=== PATIENT | male | born 1935 | race Caucasian/White ===

== ENCOUNTER 2017-12-15 19:13 | Inpatient (IN) | payer MEDICARE, BC ==
[~2017-12-15] VITALS: Ht 190.5 cm; Wt 99.2 kg
[2017-12-15] MEDS ORDERED: SODIUM CHLORIDE FLUSH 10ML SYR IVF ONE (20:00)
[2017-12-15] MEDS ORDERED: SODIUM CHLORIDE 0.9% 1,000ML IVBOLUS ONE (20:00)
[2017-12-15 20:49] LABS: BASOPHILS # (AUTO) 0.01 x10^3/uL (0-0.1); BASOPHILS % (AUTO) 0 % (0-1); EOSINOPHILS # (AUTO) 0.05 x10^3/uL (0-0.4); EOSINOPHILS % (AUTO) 1 % (1-7); LYMPHOCYTES # (AUTO) 1.44 x10^3/uL (1-3.4); LYMPHOCYTES % (AUTO) 15 % (22-44); MD NO; MEAN CORPUSCULAR HEMOGLOBIN 31.4 pg (27.5-34.5); MEAN CORPUSCULAR HGB CONC 33.8 g/dL (33.2-36.2); MEAN PLATELET VOLUME 7.6 fL (7.4-10.4); MONOCYTES # (AUTO) 0.81 x10^3/uL (0.2-0.8); MONOCYTES % (AUTO) 9 % (2-9); NEUTROPHILS # (AUTO) 7.12 x10^3/uL (1.8-6.8); NEUTROPHILS % (AUTO) 76 % (42-75); PLATELET COUNT 251 x10^3/uL (130-400); RED BLOOD COUNT 4.93 x10^6/uL (4.38-5.82); RED CELL DISTRIBUTION WIDTH 13.9 % (9.4-14.8)
[2017-12-15 21:01] LABS: ALANINE AMINOTRANSFERASE 26 U/L (12-78); ALBUMIN 3.6 g/dL (3.4-5.0); ANION GAP 12 mmol/L (5-15); CALCIUM 9.5 mg/dL (8.5-10.1); CHLORIDE 106 mmol/L (98-107)
[2017-12-15] MEDS ORDERED: omeprazole (21:02)
[2017-12-15] MEDS ORDERED: METF500T17 PO (21:02)
[2017-12-15 21:04] LABS: ALKALINE PHOSPHATASE 72 U/L (45-117); BILIRUBIN,TOTAL 1.4 mg/dL (0.2-1.0); TOTAL PROTEIN 8.5 g/dL (6.4-8.2)
[2017-12-15 21:06] LABS: CREATINE KINASE, TOTAL 185 U/L (39-308); TROPONIN I < 0.015 ng/mL (0.000-0.045)
[2017-12-15] MEDS ORDERED: ONDANSETRON 2MG/ML, 2ML IVPush PRN (22:00)
[2017-12-15] MEDS ORDERED: DOCUSATE 100 MG CAPSULE PO PRN (22:00)
[2017-12-15] MEDS ORDERED: LABETALOL 5MG/ML, 20ML IVPush PRN (22:00)
[2017-12-15 23:57] VITALS: BP 160/91
[2017-12-16] MEDS: ENOXAPARIN 40 MG/0.4 ML SQ SCH ×2 (00:36→23:29)
[2017-12-16] MEDS: D5%-0.45% NACL 1,000 ML IV SCH ×2 (00:37→08:48)
[2017-12-16 02:22] VITALS: BP 119/74
[2017-12-16 03:54] VITALS: BP 116/63
[2017-12-16] MEDS ORDERED: SAXA5TAB PO (04:55)
[2017-12-16] MEDS ORDERED: ASPI-430 PO (04:55)
[2017-12-16] MEDS ORDERED: SOLI10TA2 PO (04:55)
[2017-12-16] MEDS ORDERED: ZOLP5TAB6 PO (04:55)
[2017-12-16] MEDS ORDERED: HYDR50CA2 PO (04:55)
[2017-12-16] MEDS ORDERED: OXYB5TAB PO (04:55)
[2017-12-16] MEDS ORDERED: FINA5TAB4 PO (04:55)
[2017-12-16] MEDS ORDERED: CELE-47 PO (04:55)
[2017-12-16 06:30] LABS: HEMOGLOBIN A1C 5.6 % (4.2-6.3)
[2017-12-16 06:41] LABS: THYROID STIMULATING HORMONE 2.27 mIU/L (0.358-3.740)
[2017-12-16] MEDS: PANTOPROZOLE 40MG TABLET PO SCH (06:43)
[2017-12-16] MEDS: LEVOTHYROXINE 50 MCG TABLET PO SCH (06:43)
[2017-12-16] MEDS: INSULIN LISPRO 100 UNITS/ML, PEN SQ-INSULIN SCH ×4 (07:00→20:18)
[2017-12-16 07:59] VITALS: BP 123/78
[2017-12-16] MEDS ORDERED: FINASTERIDE 5 MG TABLET PO ONE (08:00)
[2017-12-16 12:54] VITALS: BP 121/76
[2017-12-16 13:00] LABS: MICROSCOPIC NOT IND
[2017-12-16 13:02] LABS: CULTURE INDICATED? NO
[2017-12-16] MEDS: SODIUM CHLORIDE 0.9% 1,000 ML IV SCH (16:23)
[2017-12-16 18:25] LABS: AMPHETAMINE SCREEN, URINE Negative (Negative); BARBITURATE SCREEN, URINE Negative (Negative); BENZODIAZEPINE SCREEN, URINE Negative (Negative); CANNABINOID SCREEN, URINE Negative (Negative); COCAINE SCREEN, URINE Negative (Negative); METHADONE SCREEN, URINE Negative (Negative); OPIATE SCREEN, URINE Negative (Negative)
[2017-12-16] MEDS: ATORVASTATIN 10 MG TABLET PO SCH (20:23)
[2017-12-16 20:29] VITALS: BP 147/90
[2017-12-17 01:23] VITALS: BP 156/89
[2017-12-17] MEDS: SODIUM CHLORIDE 0.9% 1,000 ML IV SCH ×2 (05:50→20:52)
[2017-12-17] MEDS: LEVOTHYROXINE 50 MCG TABLET PO SCH (05:50)
[2017-12-17 07:08] VITALS: BP 152/85
[2017-12-17] MEDS: INSULIN LISPRO 100 UNITS/ML, PEN SQ-INSULIN SCH ×4 (08:45→20:48)
[2017-12-17] MEDS: CYANOCOBALAMIN 1,000 MCG/ML, 1ML IM SCH (09:39)
[2017-12-17] MEDS: PANTOPROZOLE 40MG TABLET PO SCH (09:39)
[2017-12-17] MEDS: ACETAMINOPHEN 325 MG TABLET PO PRN ×2 (12:31→23:17)
[2017-12-17 12:42] VITALS: BP 149/85
[2017-12-17 19:07] VITALS: BP 136/76
[2017-12-17] MEDS: ATORVASTATIN 10 MG TABLET PO SCH (20:53)
[2017-12-17] MEDS: ENOXAPARIN 40 MG/0.4 ML SQ SCH (22:59)
[2017-12-18 00:35] VITALS: BP 129/75
[2017-12-18 05:43] LABS: BASOPHILS # (AUTO) 0.03 x10^3/uL (0-0.1); BASOPHILS % (AUTO) 0 % (0-1); EOSINOPHILS % (AUTO) 3 % (1-7); LYMPHOCYTES # (AUTO) 1.64 x10^3/uL (1-3.4); LYMPHOCYTES % (AUTO) 25 % (22-44); MD NO; MEAN CORPUSCULAR HGB CONC 34.1 g/dL (33.2-36.2); MEAN CORPUSCULAR VOLUME 93.7 fL (81-97); MEAN PLATELET VOLUME 7.7 fL (7.4-10.4); MONOCYTES # (AUTO) 0.65 x10^3/uL (0.2-0.8); MONOCYTES % (AUTO) 10 % (2-9); NEUTROPHILS # (AUTO) 4.09 x10^3/uL (1.8-6.8); NEUTROPHILS % (AUTO) 62 % (42-75); PLATELET COUNT 245 x10^3/uL (130-400); RED BLOOD COUNT 4.03 x10^6/uL (4.38-5.82); RED CELL DISTRIBUTION WIDTH 14.3 % (9.4-14.8)
[2017-12-18 05:46] LABS: CHLORIDE 114 mmol/L (98-107)
[2017-12-18] MEDS: LEVOTHYROXINE 50 MCG TABLET PO SCH (05:54)
[2017-12-18 05:55] LABS: ALANINE AMINOTRANSFERASE 20 U/L (12-78); ALBUMIN 2.8 g/dL (3.4-5.0); ALKALINE PHOSPHATASE 57 U/L (45-117); ANION GAP 10 mmol/L (5-15); BILIRUBIN,TOTAL 0.6 mg/dL (0.2-1.0); CALCIUM 8.7 mg/dL (8.5-10.1); CREATININE 1.11 mg/dL (0.7-1.3)
[2017-12-18 07:08] VITALS: BP 132/78
[2017-12-18] MEDS: INSULIN LISPRO 100 UNITS/ML, PEN SQ-INSULIN SCH ×4 (09:10→21:00)
[2017-12-18] MEDS: PANTOPROZOLE 40MG TABLET PO SCH (09:10)
[2017-12-18] MEDS: ACETAMINOPHEN 325 MG TABLET PO PRN (09:10)
[2017-12-18] MEDS: CYANOCOBALAMIN 1,000 MCG/ML, 1ML IM SCH (09:10)
[2017-12-18] MEDS: SODIUM CHLORIDE 0.9% 1,000 ML IV SCH (09:10)
[2017-12-18 13:15] VITALS: BP 136/82
[2017-12-18 20:01] VITALS: BP 120/71
[2017-12-18] MEDS: ATORVASTATIN 10 MG TABLET PO SCH (21:00)
[2017-12-18] MEDS: ENOXAPARIN 40 MG/0.4 ML SQ SCH (22:34)
[2017-12-19 00:58] VITALS: BP 129/76
[2017-12-19] MEDS: ACETAMINOPHEN 325 MG TABLET PO PRN ×4 (04:15→20:44)
[2017-12-19] MEDS: LEVOTHYROXINE 50 MCG TABLET PO SCH (06:17)
[2017-12-19 07:04] VITALS: BP 119/72
[2017-12-19] MEDS: PANTOPROZOLE 40MG TABLET PO SCH (09:03)
[2017-12-19] MEDS: CYANOCOBALAMIN 1,000 MCG/ML, 1ML IM SCH (09:04)
[2017-12-19] MEDS: INSULIN LISPRO 100 UNITS/ML, PEN SQ-INSULIN SCH ×4 (09:04→20:44)
[2017-12-19 14:00] VITALS: BP 124/80
[2017-12-19 19:27] VITALS: BP 132/90
[2017-12-19] MEDS: ATORVASTATIN 10 MG TABLET PO SCH (20:43)
[2017-12-19] MEDS: ENOXAPARIN 40 MG/0.4 ML SQ SCH (20:51)
[2017-12-20 01:15] VITALS: BP 128/76
[2017-12-20] MEDS: LEVOTHYROXINE 50 MCG TABLET PO SCH (05:51)
[2017-12-20] MEDS: INSULIN LISPRO 100 UNITS/ML, PEN SQ-INSULIN SCH ×2 (07:00→11:00)
[2017-12-20 07:02] VITALS: BP 148/88
[2017-12-20] MEDS: CYANOCOBALAMIN 1,000 MCG/ML, 1ML IM SCH (08:36)
[2017-12-20] MEDS: PANTOPROZOLE 40MG TABLET PO SCH (08:36)
[2017-12-20] MEDS ORDERED: LEVO50TA PO (12:07)
[2017-12-20 14:00] VITALS: BP 134/92
== END 2017-12-20 16:00 | DRG 92 ==
LOC: SUATTDRO 21:58 → ED 22:51 → EDIP 22:55 → 4EST 12-16 00:30
PROVIDERS: ADMIT Internal Medicine; ATTEND Internal Medicine
DX: G92 Toxic encephalopathy (principal); S52.202A Unspecified fracture of shaft of left ulna, initial encounter for closed fracture; S52.502A Unspecified fracture of the lower end of left radius, initial encounter for closed fracture; E11.9 Type 2 diabetes mellitus without complications; Z87.891 Personal history of nicotine dependence; E03.9 Hypothyroidism, unspecified; E53.8 Deficiency of other specified B group vitamins; E78.5 Hyperlipidemia, unspecified; E86.0 Dehydration; F03.90 Unspecified dementia, unspecified severity, without behavioral disturbance, psychotic disturbance, mood disturbance, and anxiety; T50.995A Adverse effect of other drugs, medicaments and biological substances, initial encounter; Y92.89 Other specified places as the place of occurrence of the external cause; E78.00 Pure hypercholesterolemia, unspecified; I10 Essential (primary) hypertension; Z88.0 Allergy status to penicillin; K21.9 Gastro-esophageal reflux disease without esophagitis; N40.0 Benign prostatic hyperplasia without lower urinary tract symptoms; Z86.14 Personal history of Methicillin resistant Staphylococcus aureus infection; Z91.81 History of falling; W18.39XA Other fall on same level, initial encounter; Y93.89 Activity, other specified; Y99.8 Other external cause status; Z79.82 Long term (current) use of aspirin; Z79.899 Other long term (current) drug therapy
CPT/HCPCS: 36415; 70450; 72190; 80053; 80307; 81003; 82140; 82550; 82607; 82962; 83036; 83880; 84443; 84484; 85025; 93005; 94660; 99285; G0378; J1650; 92523-GN; J3420; J7030